=== PATIENT | female | born 1970 | race Caucasian/White ===

== ENCOUNTER 2024-05-01 13:47 | Emergency (ER) | payer MEDICAID ==
[~2024-05-01] VITALS: Ht 172.7 cm; Wt 69.9 kg
[2024-05-01 14:01] VITALS: O2SAT 99
== END 2024-05-01 14:48 | disposition home or self-care (01) ==
LOC: ER 13:47
DX: S80.12XA Contusion of left lower leg, initial encounter (principal); X58.XXXA Exposure to other specified factors, initial encounter; Y93.89 Activity, other specified; Y92.89 Other specified places as the place of occurrence of the external cause; Y99.8 Other external cause status
CPT/HCPCS: 73590; A4606; A4663